=== PATIENT | male | born 1980 | race Caucasian/White ===

== ENCOUNTER 2017-06-24 08:55 | Day surgery (SDC) | payer BC ==
[2017-06-24] MEDS ORDERED: Oxymetazoline HCl 0.05% ( 15 ML ) ONE ×2 (09:42→11:31)
[2017-06-24] MEDS ORDERED: Bacitracin Zinc Ointment 30 gm TUBE ONE (11:28)
[2017-06-24] MEDS ORDERED: Lidocaine 1% w/Epinephrine 1:200K 30 ML VIAL ONE (11:28)
[2017-06-24] MEDS ORDERED: Fentanyl 100 MCG/2 ML VIAL ONE (11:34)
[2017-06-24] MEDS ORDERED: methylPREDNISolone Acetate 40 mg/ml Vial ONE (11:35)
[2017-06-24] MEDS ORDERED: Dexamethasone 20 MG/5 ML VIAL ONE (11:54)
[2017-06-24] MEDS ORDERED: Propofol 200 MG/20 ML VIAL ONE (11:54)
[2017-06-24] MEDS ORDERED: Lidocaine 2% PF 10 ML AMP (For Epidural Use) ONE (11:54)
[2017-06-24] MEDS ORDERED: Ondansetron HCl/PF 4 MG/2 ML Vial ONE (11:54)
[2017-06-24] MEDS ORDERED: Succinylcholine Chloride 20 MG/ML 10 ml SYRINGE FS ONE (11:54)
--- NOTE | 2017-06-24 23:59 | OP ---
PREOPERATIVE DIAGNOSES: 1. Chronic rhinosinusitis. 2. Nasal septal deviation. 3. Bilateral inferior turbinate hypertrophy. 4. Bilateral eustachian tube dysfunction. POSTOPERATIVE DIAGNOSES: 1. Chronic rhinosinusitis. 2. Nasal septal deviation. 3. Bilateral inferior turbinate hypertrophy. 4. Bilateral eustachian tube dysfunction. PROCEDURES: 1. Bilateral endoscopic sinus surgery, total ethmoidectomies. 2. Bilateral endoscopic sinus surgery, maxillary antrostomies. 3. Left endoscopic sinus surgery, frontal sinusotomy. 4. Nasal septoplasty. 5. Bilateral inferior turbinate submucosal resection. 6. Bilateral eustachian tube dilation. SURGEON: Lio Whitten MD ESTIMATED BLOOD LOSS: 20 mL COMPLICATIONS: None. ANESTHESIA: GETA. PROCEDURE IN DETAIL: The patient was taken to the operating room and placed supine on the table. Ge neral endotracheal anesthesia was obtained by the Anesthesia staff. Tube was secured in the left low er lip. The patient was then placed in the beach chair position, and Afrin pledgets were placed in t he nasal cavity. Injections of 1% lidocaine with 1:100,000 epinephrine were made into the nasal sept um as well as the inferior turbinates. The patient was then prepped and draped in standard surgical fashion for nasal surgery. Following this, the Afrin pledgets were removed. A Adalberto incision was made on the left nasal septum. Submucoperichondrial dissection was performed. The deviated portions of the septum included portions of the cartilage and the bony septum. These isolated areas were rem pat using three cutting rongeurs. There was noted to be a large dorsal and caudal strut, left intac t for support of the nose. The mucoperichondrial flaps were then reapproximated using a 4-0 gut stit ch. Any straight pieces of cartilage were crushed prior to this and placed between the mucoperichond rial flaps. Following this, the inferior turbinates were then punctured with a submucosal coblation w and, and submucosal coblations were performed of multiple areas of the inferior portion of the anteri or inferior turbinate. Please note that the submucosal microdebrider was used to submucosally resect the anterior and inferi or portions of the inferior turbinates. Following this, the 0-degree scope was advanced into the mid dle meatus. The middle turbinates were gently medialized with a Geraldine elevator. The uncinate proces s was then anteriorly fractured using the ball-ended probe and which was then removed using the micro debrider and straight Blakesley forceps. Following this, the natural maxillary ostia was identified with a ball-ended probe and was gently widened with the straight Blakesley forceps and the microdebri yumiko. Following this, the 40-degree scope and the 40-degree curved microdebrider was used to further open the left frontal recess cells and left frontal sinus ostia cells. Following this, the 0-degree scope was advanced to the posterior nasal cavity. The balloon sinuplasty device was then used to can nulate the eustachian tube orifice and it was then inflated to 12 atmospheres of pressure and held fo r approximately 2 minutes on each side. The patient tolerated the procedure well. Nasal cavity was irrigated. MeroPacks were placed. [place] splints were placed and secured.
== END 2017-06-24 14:40 | disposition home or self-care (01) ==
LOC: SDC 08:55
PROVIDERS: ATTEND Otolaryngology Plastic Surgery within the Head & Neck
PROC: 099R8ZZ Drainage of Left Maxillary Sinus, Via Natural or Artificial Opening Endoscopic (ICD-10-PCS; principal; 2017-06-24)
PROC: 099Q8ZZ Drainage of Right Maxillary Sinus, Via Natural or Artificial Opening Endoscopic (ICD-10-PCS; principal; 2017-06-24)
PROC: 097F8ZZ Dilation of Right Eustachian Tube, Via Natural or Artificial Opening Endoscopic (ICD-10-PCS; principal; 2017-06-24)
PROC: 09TL8ZZ Resection of Nasal Turbinate, Via Natural or Artificial Opening Endoscopic (ICD-10-PCS; principal; 2017-06-24)
PROC: 09RM47Z Replacement of Nasal Septum with Autologous Tissue Substitute, Percutaneous Endoscopic Approach (ICD-10-PCS; principal; 2017-06-24)
PROC: 097G8ZZ Dilation of Left Eustachian Tube, Via Natural or Artificial Opening Endoscopic (ICD-10-PCS; principal; 2017-06-24)
DX: J32.9 Chronic sinusitis, unspecified (principal); J34.2 Deviated nasal septum; J34.3 Hypertrophy of nasal turbinates; H69.93 Unspecified Eustachian tube disorder, bilateral; Z79.51 Long term (current) use of inhaled steroids; Z98.818 Other dental procedure status
CPT/HCPCS: J0280; J1030; J1100; J2001; J2405; J2704; J2920; J3010